=== PATIENT | male | born 1945 | race Caucasian/White ===

== ENCOUNTER 2018-03-25 21:54 | Observation (INO) ==
[2018-03-25] MEDS ORDERED: Sodium Chloride 0.9% 1,000 ML PRIMARY IV ONE (22:11)
--- NOTE | 2018-03-25 22:16 | EKG ---
[address] [address] Measurements Intervals [place] Rate: 80 P: 146 WV: 228 QRS: -7 QRSD: 106 T: 40 QT: 410 QTc: 445 Interpretive Statements ELECTRONIC ATRIAL PACEMAKER ABNORMAL RHYTHM ECG Compared to ECG 06/04/2016 14:19:07 T-wave abnormality no longer present Electronically Signed On 03-28-18 09:50:50 MDT by Ravindra Gomez MD [email or web address]
[2018-03-25 22:19] LABS: BASOPHILS # (AUTO) 0.02 10*3/UL; BASOPHILS % (AUTO) 0.3 % (0-1); EOSINOPHILS # (AUTO) 0.08 10*3/UL; EOSINOPHILS % (AUTO) 1.2 % (0-8); Hematocrit [HCT] 45.4 % (42.0-52.0); Hemoglobin [HGB] 15.4 g/dL (14.0-18.0); LYMPHOCYTES # (AUTO) 1.35 10*3/uL; MEAN CORPUSCULAR HEMOGLOBIN 32.6 PG (27-31); MEAN CORPUSCULAR HGB CONC 33.9 g/dL (33-37); MEAN PLATELET VOLUME 9.3 FL (7.4-12.2); MONOCYTES # (AUTO) 0.59 10*3/UL (0.3-0.8); MONOCYTES % (AUTO) 9.1 % (5-15); NEUTROPHILS % (AUTO) 68.2 % (50-80); RED BLOOD COUNT 4.73 10^6/uL (4.70-6.10)
[2018-03-25 22:20] LABS: PLATELET MORPHOLOGY COMMENT NORMAL MORPHOLOGY (NORM); RBC MORPHOLOGY COMMENT NORMAL MORPHOLOGY (NORM); WBC MORPHOLOGY COMMENT NORMAL MORPHOLOGY (NORM)
[2018-03-25 22:28] LABS: VENOUS PH 7.41 (7.32-7.42)
[2018-03-25 22:30] LABS: BLOOD UREA NITROGEN 25 mg/dL (7-22); BUN/CREATININE RATIO 19.23 (6-20); SERUM ALBUMIN 4.1 g/dL (3.5-4.8)
--- NOTE | 2018-03-25 23:23 | DI ---
EXAM: CT Head Without Intravenous Contrast CLINICAL HISTORY: ITS.REASON syncope/seizure Physician Notes: Tech Comments: TECHNIQUE: Axial computed tomography images of the head/brain without intravenous contrast. COMPARISON: No relevant prior studies available. FINDINGS: Brain: No evidence for acute intracranial hemorrhage or mass effect. No visualized acute cortical edema or evidence for territorial infarct by CT at this time. There are mild periventricular and subcortical white matter hypodensities bilaterally which are nonspecific, typically related to chronic small vessel ischemia. Mild hypodensity within the right basal ganglia could represent an old lacunar infarct or prominent perivascular space, with small similar foci also noted within the left thalamus and internal capsule. Global cortical involutional changes are present. Ventricles: Unremarkable. No ventriculomegaly. Bones/joints: Unremarkable. No acute fracture. Soft tissues: Unremarkable. Sinuses: Chronic paranasal sinus mucosal thickening is present. Mastoid air cells: Unremarkable as visualized. No mastoid effusion. IMPRESSION: 1. No acute intracranial CT findings. 2. Chronic intracranial changes as above. [employer] 03/25/18 23:29 Call Doctor Regarding Stroke, called Dr. Prashant Farias on 03/25 23:29 (-06:00)
--- NOTE | 2018-03-25 23:56 | PDOC ---
Syncope/Near-Syncope HPI - General Chief Complaint: Syncope / Near-Syncope Stated Complaint: PASSED OUT Date Seen by Provider: 03/25/18 Time Seen by Provider: 22:00 Source: POSITIVE: Patient, Spouse, EMS Exam Limitations: POSITIVE: No limitations Nurse's Notes Reviewed & Considered: Yes EMS Report Reviewed & Considered: Verbal - History of Present Illness Initial Comments: The patient is a 72-year-old male who is brought to the emergency room by paramedics from his home in [facility]. Patient was eating dinner with his when the patient had a abrupt loss of consciousness. states that " his eyes rolled up and his jaw clenched and he stopped breathing". Patient laid back into his chair and did not fall. No obvious choking. called paramedics. No bystander CPR. Patient resumed spontaneous respirations shortly after. Time of loss of consciousness less than 2 minutes. Paramedics report that patient was alert and oriented upon their arrival to the patient's residence. In route the patient had one episode of emesis. Patient has a cardiac pacemaker and a history of atrial fibrillation. He is on Eliquis, 5 mg twice daily. He is also on diltiazem, losartan, flecainide, atorvastatin, Nexium, citalopram. Patient denies any head, chest or abdominal pain before or after incident. Reportedly had a "stroke "2 years ago. Body Location Affected: REPORTS: Other (Loss of consciousness) Timing: REPORTS: Abrupt Duration: Other (Less than 2 minutes) Severity: Moderate Quality: REPORTS: Other (Patient denies any pain anywhere) Episode Began at:: 20:00 Witnessed? 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) Associated Symptoms: REPORTS: None (feels back to nml) Recently seen/treated/hospitalized: No Any Prior Injuries Related to Current Complaint?: No - Patient Home Medications Home Medications: Home Medications Multivitamin [Daily Vitamin] 1 tab ORAL QD tab 06/18/11 Zyrtec 1 tab PO QD 06/18/11 Gluc/Yves-MSM#1/C/Yuval/Greg/Bor [Osteo Bi-Flex Caplet] 1 ea PO DAILY tab Esomeprazole Magnesium [Nexium] 40 mg PO DAILY #0 cap 07/03/15 Temazepam 30 mg PO QHS PRN #90 cap 09/02/15 Apixaban [Eliquis] 5 mg PO BID #60 tab 03/17/16 Diltiazem HCl [Cartia Xt] 240 mg PO DAILY cap 07/09/16 flecainide 100 mg tablet 150 mg PO Q12H tab 08/12/17 losartan 50 mg tablet 50 mg PO QD #30 tab 08/12/17 tizanidine 4 mg capsule 4 mg PO TID PRN #180 cap 08/12/17 tramadol 50 mg tablet 50 mg PO QID PRN #120 tab 08/12/17 trazodone 50 mg tablet 50 mg PO QHS PRN #90 tab 08/12/17 citalopram 20 mg tablet 20 mg PO DAILY #90 tab 08/30/17 atorvastatin 20 mg tablet 20 mg PO DAILY #90 tab 10/13/17 fluticasone 50 mcg/actuation nasal spray,suspension 2 spray INASL DAILY #16 g tadalafil 5 mg tablet 5 mg PO QDAY #90 tab 10/13/17 testosterone cypionate 200 mg/mL intramuscular oil 200 mg IM every 2 weeks #6 vial 10/13/17 - Patient Allergies Allergies/Adverse Reactions: Allergies 3 Allergy/AdvReac Type Severity Reaction Status Date / Time ezetimibe Allergy BLURRED Verified 08/12/17 11:20 [From Vytorin 10-10] VISION VERTIGO NSAIDS (Non-Steroidal Allergy GI BLEED Verified 08/12/17 11:20 Anti-Inflamma simvastatin Allergy BLURRED Verified 08/12/17 11:20 [From Vytorin 10-10] VISION VERTIGO Past Medical History - heen HEENT History: Hard of Hearing, Tinnitis, Chipped or Loose Teeth Cardiovascular History: Hypertension, Pacemaker, Hyperlipidemia, Other (please comment) Additional Cardiovasular History: A-FIB, PACEMAKER 05/30/2016 Respiratory History: Sleep Apnea, Home CPAP Use, Snoring Gastrointestinal History: GERD, GI Bleed, Hiatal Hernia Additional Gastrointestinal History: BARRETTS Genitourinary History: Denies History Endocrine History: Denies History Musculoskeletal History: Arthritis, Fibromyalgia, Back Pain, Joint Pain Prosthesis or Implant: Yes (PACEMAKER-2015) Additional Musculoskeletal History: 2010 L-SPINE, NECK- 5 LEVEL FUSION 2005, SHOULDER-2006,2008,2012 Neurological History: CVA Additional Neurological History: CVA 01/20/2016 Blood Disorders: Previous Bld Transfusions Psychiatric History: Depression History of Sexually Transmitted Diseases: No Male Reproductive History: BPH Cancer History: Denies History In Past Year Been Physically Harmed or Verbally Threatened: No History of MDRO: No History of Other Communicable Diseases: No Tobacco Use: Never Smoker Type of alcohol normally used: Beer, Wine In the Past 12 Months, Have Used or Abuse Any Substance: None Previous Surgical History: Yes Type / Date of Surgery: PACE MAKER 2015, NECK FUSION 2005, BACK SURGERY 2009, SHOULDER 2006,2008, 2012 Anesthesia Reactions: No Malignant Hyperthermia: No Family History of Malignant Hyperthermia: No Significant Family History: Cancer Past Medical History Reviewed: Reviewed - No Changes ROS - Limitations ROS Limitations: No Limitations Constitution: REPORTS: Denies Symptoms, Other (Syncope as above) Cardiovascular: REPORTS: Denies Cardiac Symptoms Respiratory: REPORTS: Denies Resp Symptoms Neurological: REPORTS: Other (Syncope as above) Gastrointestinal: REPORTS: Vomitting (One episode of vomiting reported by paramedics in route to the hospital) Endocrine: REPORTS: Denies Symptoms Musculoskeletal: REPORTS: Denies MS Symptoms Genitourinary: REPORTS: Denies Symptoms Eyes: REPORTS: Denies Symptoms ENT: REPORTS: Denies Symptoms Skin: REPORTS: Denies Skin Symptoms Lympathic: REPORTS: Denies Lympathic Symptoms Immunologic: POSITIVE: Denies Symptoms Psychiatric: POSITIVE: Denies Psych Symptoms Syncope / Near-Syncope Exam - General Appearance General Appearance: POSITIVE: Alert, Cooperative, No Acute Distress, No Evidence of Trauma - HEENT HEENT: POSITIVE: Head Inspection Nml, Eyes Inspection Nml, Ears Inspection Nml, Nose Inspection Nml, Oral/Dental Inspect. Nml, Pharynx Inspect. Nml, PERRL, EOMI - Pupil Size Pupil Size: 3 mm: Bilateral (PERRLA) - Neck / Back Neck/Back: POSITIVE: Supple, Non-Tender, No Carotid Bruit - Respiratory Respiratory: POSITIVE: No Respiratoy Distress, Breath Sounds Normal, No Pleuritic Chest Pain - Cardiovascular Cardiovascular: POSITIVE: Regular Rate and Rhythm, Heart Sounds Normal, Equal Pulses, Strong Pulses Peripheral Pulses: Radial (R): 2+, Radial (L): 2+ - Abdomen Abdomen: Soft: (All Quadrants), Normal Bowel Sounds: (All Quadrants), Denies Tenderness: (All Quadrants), No Splenomegaly: (All Quadrants), No Hepatomegaly: (All Quadrants), No Guarding: (All Quadrants), No Rebound: (All Quadrants), No Palpable Pulse: (All Quadrants), No Palpabale Mass: (All Quadrants), No Distention: (All Quadrants), No Rigidity: (All Quadrants) - Skin Skin: POSITIVE: Intact, Normal For Race, Warm, Dry, No Rash - Extremities Extremity: Non-Tender: (All Extremities), Normal ROM: (All Extremities), Normal Inspection: (All Extremities) - Neuro / Psych Higher Functions: POSITIVE: Oriented to Person, Oriented to Place, Oriented to Time, Normal Speech, Normal Cognition, Appropriate Mood, Appropriate Affect. NEGATIVE: Disoriented to Person, Disoriented to Place, Disoriented to Time, Speech Abnormalities, Cognition Abnormalities, Depressed Mood, Depressed Affect , Abnml Response to Command, No Response to Command, Eyes Open to Command, Slow Response to Command, Inapp Response to Command, Expressive Aphasia, Receptive Aphasia, Abnml Response to Pain, Withdraws to Pain, Flexor to Pain, Extensor to Pain, No Response to Pain, Dysarthria, Other Cranial Nerves: POSITIVE: Normal As Tested, No Evidence of Acute CVA Cerebellar: POSITIVE: Normal As Tested Sensorimotor: POSITIVE: No Motor Deficits, No Sensory Deficits, Reflexes Normal , Symmetrical Syncope/Near-Syncope Progress - Results Reviewed by me Xrays/CTs/US Reviewed by me: Yes Discussed with Radiologist: Yes Radiology Findings: CT scan head without contrast reported as normal by radiologist Lab Results Reviewed by Me: Yes (venous blood gas normal; troponin less than 0.012; total creatine kinase to) CBC and BMP: 03/25/18 22:12 03/25/18 22:12 EKG Interpreted/Reviewed By Me:: Yes (pacemaker rhythm) EKG Interpretation:: POSITIVE: Abnormal EKG (Pacemaker rhythm) - Patient's Progress Pain Medication Addressed: POSITIVE: Not Applicable School/Work Release Addressed: POSITIVE: Not Applicable Re-examine Time: 23:45 Re-Examine Comment: Patient remained asymptomatic throughout his stay in the emergency room. Rested comfortably. Status: POSITIVE: Unchanged CVA/Syncope Quality Measure Initiative: POSITIVE: EKG - Consult Counseled: POSITIVE: Patient, Family, RE: Lab Results, RE: Radiology Results, RE : DX, RE: Need for F/U Patient Care Time - Estimated PCT Patient Care Time (In Minutes): 60 Vital Signs - Recent Vital Signs Vital Signs: Vital Signs (Last 8 hours) Temp Pulse Pulse Resp BP Pulse Ox 03/25/18 23:14 80 03/25/18 22:00 96.0 F L 81 18 117/72 90 03/25/18 21:54 96.0 F L 81 18 117/72 93 - VS Reviewed Vital Signs Reviewed: Yes Discharge Clinical Impression: Syncope Discharge Disposition: Admit to Inpatient Condition: Fair Follow Up With: BRANDI OVERTON [Primary Care Provider] - Date Decision to Admit to Inpatient: 03/25/18 Time Decision to Admit to Inpatient: 23:45
[2018-03-26] MEDS ORDERED: LIDOCAINE W/ SODIUM BICARB 0.5 ML SYR SUBD PRN (01:01)
[2018-03-26] MEDS ORDERED: Sodium Chloride 0.9% 1,000 ML PRIMARY IV ONE (01:01)
[2018-03-26] MEDS ORDERED: Non-Formulary Drug (Temazepam [Temazepam] 30 MG) PO PRN (01:01)
[2018-03-26] MEDS ORDERED: FLECAINIDE 100 MG TABLET PO SCH (01:01)
[2018-03-26] MEDS ORDERED: tiZANidine Tab 4 MG TAB PO PRN (01:01)
[2018-03-26] MEDS ORDERED: traZODone Tab 50 MG TAB PO PRN (01:01)
[2018-03-26] MEDS ORDERED: traMADol 50 MG TABLET PO PRN (01:01)
[2018-03-26] MEDS: Sodium Chloride 0.9% 1,000 ML PRIMARY IV SCH ×2 (01:35→14:41)
[2018-03-26 03:24] LABS: AMPHETAMINE SCREEN NEGATIVE (NEG); CANNABINOID SCREEN,URINE NEGATIVE (NEG); COCAINE SCREEN NEGATIVE (NEG); METHADONE URINE SCREEN NEGATIVE (NEG); METHAMPHETAMINES SCREEN,URINE NEGATIVE (NEG); OPIATE SCREEN,URINE NEGATIVE (NEG); URINE SAMPLE TYPE CLEAN CATCH URINE; URINE SPECIFIC GRAVITY - MAN 1.007
[2018-03-26] MEDS ORDERED: Apixaban 5 MG TABLET PO SCH (09:00)
[2018-03-26] MEDS ORDERED: DILTIAZEM CD 240 MG CAP PO SCH (09:00)
[2018-03-26] MEDS ORDERED: CITALOPRAM 20 MG TABLET PO SCH (09:00)
[2018-03-26] MEDS ORDERED: [UNRECOGNIZED DRUG - OTHER] PO SCH (09:00)
[2018-03-26] MEDS ORDERED: LOSARTAN 50 MG TABLET PO SCH (09:00)
[2018-03-26] MEDS ORDERED: OMEPRAZOLE 40 MG CAPSULE PO SCH (09:00)
--- NOTE | 2018-03-26 09:46 | PDOC ---
HPI - History of Present Illness Date of Service: 03/26/18 Time of Service: 09:39 Chief Complaint: passed out and stopped breathing. History of Present Illness: This is a very pleasant 72 YO male with atrial fibrillation and history of CVA with pacemaker, HTN, hypercholesterolemia, amongst other issues who comes in by ambulance from [place] after he was at his table with his family and his neck rolled back, he became pale, unresponsive, and stopped breathing per the 's history. His teeth were reportedly clenched per the emergency room physician's report. The patient remained in his chair throughout the episode and did not slump or fall to the floor. He was in his chair when EMS arrived according to the patient's . The patient has no recall of this event. He denies any shortness of breath or chest pain prior to the event or any prodrome of symptoms prior to this episode. No convulsions were described. The patient' s drove down the hill, and called 911. The patient's daughter was present at the patient's cabin with him during this episode. The episode lasted about 2 minutes. He lost his urine, but no fecal incontinence. He did not bite his tongue. He is never had anything like this happen before. His pacemaker is interrogated fairly regularly through the phone and there had been no issues with pacemaker in the 3 years that it is been present. He was hypoxic this morning as well and is on 3 L per nasal cannula. His EKG showed a paced rhythm. His troponins were negative. In route in the ambulance, the patient became pale and vomited, but he does not recall much of the ride. He states he remembers bits and pieces of the ride down. He notes to me that he is tired but not overly confused. There've never been any seizures before. He notes importantly that he normally cannot move his neck very well because of his 5 level effusion. It's hard for him to rotate his head from side to side or extend the neck. This was something that surprised the family and that his neck extended during this episode. It did not extend prior to the episode happening. Past Medical History Medical History: 1. Atrial fibrillation with a history of a stroke. He had a pacemaker placed in 2016. 2. Status post CVA in 2016. 3. Hypertension. 4. Hypercholesterolemia. 5. Arthritis with back and neck surgery. 6. GERD Surgical History: 5 level fusion in the cervical spine, lumbar surgery, umbilical hernia repair, remote, colonoscopy Pertinent Family History: Mother of colon cancer with metastasis to the brain Past Social History: Does not smoke. Drinks only occasionally. 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 Tobacco Use: Never Smoker Do you dip or chew tobacco: No In the Past 12 Months, Have Used or Abuse Any of the Following Substance: None Alcohol Use: Occasionally Medication / Allergies Home Medications: Home Medications 3 Medication Instructions Recorded Confirmed Type Multivitamin [Daily Vitamin] 1 tab ORAL QD tab 06/18/11 03/26/18 History Zyrtec 1 tab PO QD 06/18/11 03/26/18 History Gluc/Yves-MSM#1/C/Yuval/Greg/Bor 1 ea PO DAILY tab 07/04/13 08/12/17 History [Osteo Bi-Flex Caplet] Esomeprazole Magnesium [Nexium] 40 mg PO DAILY #0 cap 07/03/15 03/26/18 History Temazepam 30 mg PO QHS PRN #90 cap 09/02/15 03/26/18 History Apixaban [Eliquis] 5 mg PO BID #60 tab 03/17/16 03/26/18 History Diltiazem HCl [Cartia Xt] 240 mg PO DAILY cap 07/09/16 03/26/18 History flecainide 100 mg tablet 100 mg PO DAILY tab 08/12/17 03/26/18 History losartan 50 mg tablet 50 mg PO QD #30 tab 08/12/17 03/26/18 History tizanidine 4 mg capsule 4 mg PO TID PRN #180 cap 08/12/17 03/26/18 History tramadol 50 mg tablet 50 mg PO QID PRN #120 tab 08/12/17 03/26/18 History trazodone 50 mg tablet 50 mg PO QHS PRN #90 tab 08/12/17 03/26/18 History citalopram 20 mg tablet 20 mg PO DAILY #90 tab 08/30/17 03/26/18 Rx atorvastatin 20 mg tablet 20 mg PO DAILY #90 tab 10/13/17 03/26/18 Rx fluticasone 50 mcg/actuation nasal 2 spray INASL DAILY #16 g 10/13/17 03/26/18 Rx spray,suspension testosterone cypionate 200 mg/mL 200 mg IM every 2 weeks #6 vial 10/13/17 Rx intramuscular oil Flecainide Acetate 50 mg PO DAILY 03/26/18 03/26/18 History Allergies/Adverse Reactions: Allergies 3 Allergy/AdvReac Type Severity Reaction Status Date / Time ezetimibe Allergy BLURRED Verified 03/26/18 06:46 [From Vytorin 10-10] VISION VERTIGO NSAIDS (Non-Steroidal Allergy GI BLEED Verified 03/26/18 06:46 Anti-Inflamma simvastatin Allergy BLURRED Verified 03/26/18 06:46 [From Vytorin 10-10] VISION VERTIGO Review of Systems - Review of Systems All Systems: Reviewed & No Additional Complaints Except as Stated (This was a 12 point review of systems) - Cardiovascular Cardiovascular: REPORTS: Syncope - Gastrointestinal Gastrointestinal / Abdominal: REPORTS: Nausea, Vomiting - Musculoskeletal Musculoskeletal: REPORTS: Back Pain, Neck Pain, Joint Pain - Shoulders - Neurological Neurologic: REPORTS: Headache (Has had a headache the past 2 days and that is not normal for the patient.) Exam - Vitals Vital Signs: Vital Signs Temperature 97.7 F Temperature Source Temporal Artery Scan Pulse Rate [Pulse Oximeter] 80 Pulse Rate [Standing] 85 Pulse Rate [Sitting] 80 Pulse Rate [Lying] 81 Pulse Rate 80 Respiratory Rate 20 Blood Pressure [Standing] 126/74 Blood Pressure [Sitting] 123/70 Blood Pressure [Lying] 121/68 Blood Pressure [Right Arm] 128/68 Blood Pressure [Left Arm] 117/72 Blood Pressure 115/74 Pulse Ox 95 Oxygen Flow Rate 3 Oxygen Delivery Method Nasal Cannula Height 5 ft 8 in Weight 198 lb 5 oz - General General Appearance: No Acute Distress, Cooperative - Head Head Exam: Normal Inspection, Normocephalic, Atraumatic - Eye Eye Exam: POSITIVE: No Scleral Icterus - ENT ENT Exam: POSITIVE: Mucous Membranes Moist - Neck Neck Exam: Normal Inspection, No Tenderness, No Lymphadenopathy, No Thyromegaly - Respiratory Respiratory Exam: POSITIVE: Clear to Auscultation - Bilaterally, Breathing Non Labored, Normal to Percussion and Palpation - Cardiovascular Cardiovascular Exam: POSITIVE: RRR, No Murmur, No Clicks, No Gallops, No Rubs, No JVD - GI/Abdominal GI/Abdominal Exam: POSITIVE: Normal Bowel Sounds, Non Tender, Non Distended, Soft - Rectal Rectal Exam: POSITIVE: Deferred - External Exam: POSITIVE: Deferred Exam: POSITIVE: Deferred - Extremities Extremities Exam: POSITIVE: No Clubbing Present, No Edema Present, No Cyanosis Present - Back Back Exam: POSITIVE: No CVA Tenderness - Neurological Neurological Exam: POSITIVE: Alert, Oriented x 3, No Facial Droop, Speech Intact / Clear, Moves All Extremities Equally - Psychiatric Psychiatric Exam: POSITIVE: Normal Affect, Normal Mood - Integumentary Integumentary Exam: POSITIVE: Normal Color, Warm, Dry, Intact Results - Labs CBC and BMP: 03/25/18 22:12 03/25/18 22:12 AFib Stroke Risk Screening - AFib Stroke Risk (CHADS-VASc) Atrial Fibrillation Ischemic Stroke Risk Factors: Age 65 to 74 years, Stroke, TIA or TE (The patient is already on novel oral anticoagulant) CHADS-VASc Score (A-Fib Stroke Risk Score): 3 CHADS-VASc Risk: High Risk Assessment and Plan - Patient Problems (1) Syncope Current Visit: Yes Status: Acute Code(s): R55 - Syncope and collapse (2) Pacemaker Current Visit: Yes Status: Chronic Onset Date: 07/09/16 Code(s): Z95.0 - Presence of cardiac pacemaker (3) Hyperlipidemia Current Visit: Yes Status: Chronic Onset Date: 06/18/11 Code(s): E78.5 - Hyperlipidemia, unspecified Qualifiers: Hyperlipidemia type: pure hypercholesterolemia Qualified Code(s): E78.00 - Pure hypercholesterolemia, unspecified; E78.0 - Pure hypercholesterolemia (4) Essential hypertension Current Visit: Yes Status: Chronic Onset Date: 06/18/11 Code(s): I10 - Essential (primary) hypertension - Assessment / Plan Additional Assessment/Plan Details: Patient is admitted for observation. Given hypoxia, despite novel oral anticoagulant, I think it's reasonable to do a CT of the chest with contrast to rule out pulmonary emboli. We can also look for any potential infections such as pneumonia. Overall, the patient's story sounds somewhat suspicious for possible seizure at least it's in the differential. I'll talk to the neurologist. I think it may be worth having the patient visit them as an outpatient for further evaluation of possible EEG. The patient's will bring in their interrogation machine and we will have the patient put up and we will send the report, and hopefully contact her funding analyst in [place] for further help in evaluation of this issue. I doubt that the pacemaker is the issue but I think it needs to be done for completeness. Orthostatics were done and they are negative. Could be possible vasovagal syncope as well. Continue home medications. Thus far, troponins are negative, but given the syncopal episode and may be worthwhile to go through a stress test to make sure there is no coronary artery disease. I'll talk with his funding analyst here to find out whether the pacemaker presence would exclude him from having that test done here in [place]. Discussed the above plan with the patient and his and they agreed to proceed.
[2018-03-26] MEDS: ESOMEPRAZOLE 40 MG PO SCH ×2 (09:53→20:27)
[2018-03-26] MEDS: FLECAINIDE 100 MG PO SCH ×2 (09:54→20:26)
[2018-03-26] MEDS: DILTIAZEM CD 240 MG PO SCH (09:54)
[2018-03-26] MEDS: APIXABAN 5 MG PO SCH ×2 (09:54→20:27)
[2018-03-26] MEDS: FLUTICASONE PROPIONATE 16 GRAM (120 SPRAYS / BOTTLE) ENOS SCH (09:58)
[2018-03-26] MEDS: Multivitamin Tab 1 TAB PO SCH (10:01)
[2018-03-26] MEDS ORDERED: LevETIRAcetam Tab 500 MG TABLET PO ONE (11:36)
--- NOTE | 2018-03-26 12:08 | DI ---
Exam: CTA CHEST With Contrast INDICATION: Hypoxia,? Pulmonary embolism TECHNIQUE: Multiple, contiguous 3 mm axial cuts of the chest are obtained following the administration of IV contrast. High resolution axial images as well as sagittal and coronal reformatted images are available. COMPARISON: Chest radiograph 07/08/2007 FINDINGS: No pulmonary embolism. Minimal dependent atelectasis in the lung bases bilaterally. No acute infiltrate. In the left lower lobe there is a 4 mm subpleural noncalcified nodule. Lungs are otherwise clear. Left upper chest dual-lead cardiac with leads with cardiomegaly. With leads projecting in the right atrium and right ventricle. Cardiomegaly. No pericardial effusion. Thoracic aorta normal caliber without dissection. No pleural effusion or pneumothorax. No adenopathy. Calcified left hilar lymph node measuring 1.6 cm compatible with old granulomatous disease. Anterior plate screw fusion hardware partially imaged involving C6 and C7 possibly extending more superiorly in the cervical spine. Endplate degenerative osteophyte formation at multiple levels of the thoracic spine of mild to moderate degree. No acute osseous abnormality. IMPRESSION: 1. No pulmonary embolism. 2. No focal infiltrates in the lungs. Minimal dependent bilateral basilar atelectasis. 3. 4 mm noncalcified subpleural nodule left lower lobe. This is nonspecific. Follow-up exam in 6 months suggested. 4. Cardiac pacer with leads with cardiomegaly. 5. Calcified left hilar lymph nodes compatible with old granulomatous disease.
--- NOTE | 2018-03-26 16:28 | DI ---
Exam: US CAROTID HISTORY: Syncope COMPARISON: No prior carotid exam available TECHNIQUE: Duplex sonography of the carotid vasculature and vertebral vasculature including spectral and color Doppler techniques and rodriguez scale evaluation provided for review. FINDINGS: VESSEL: RIGHT PSV (cm/s) LEFT PSV (cm/s) CCA 107 cm/s 100 cm/s Carotid bulb 72 cm/s 109 cm/s ICA proximal 59 cm/s 108 cm/s ICA mid 55 cm/s 55 cm/s ICA distal 45 cm/s 57 cm/s ECA 112 cm/s 128 cm/s Vertebral 35 cm/s 61 cm/s IC to CC 0.6 cm/s 1.1 cm/s Antegrade flow in the vertebral arteries are noted bilaterally. There is mild calcified plaque in the bilateral carotid bulbs IMPRESSION: 1. No hemodynamically significant stenotic lesions. 2. Antegrade flow in the vertebral arteries bilaterally. 3. Mild calcified plaque in the bilateral carotid bulbs.
[2018-03-26] MEDS: LevETIRAcetam Tab 500 MG TABLET PO SCH (20:26)
[2018-03-26] MEDS: ATORVASTATIN 20 MG PO SCH (20:29)
[2018-03-26] MEDS: CITALOPRAM 20 MG PO SCH (20:29)
[2018-03-26] MEDS: LOSARTAN 50 MG PO SCH (20:30)
[2018-03-26] MEDS ORDERED: ATORVASTATIN 20 MG TABLET PO SCH (21:00)
[2018-03-27] MEDS ORDERED: FLECAINIDE 100 MG TABLET PO SCH (09:00)
[2018-03-27] MEDS: Multivitamin Tab 1 TAB PO SCH (09:10)
[2018-03-27] MEDS: LevETIRAcetam Tab 500 MG TABLET PO SCH ×2 (09:10→20:09)
[2018-03-27] MEDS: FLECAINIDE 100 MG PO SCH ×2 (09:11→20:17)
[2018-03-27] MEDS: DILTIAZEM CD 240 MG PO SCH (09:12)
[2018-03-27] MEDS: ESOMEPRAZOLE 40 MG PO SCH ×2 (09:12→20:12)
[2018-03-27] MEDS: APIXABAN 5 MG PO SCH ×2 (09:13→20:12)
[2018-03-27] MEDS: FLUTICASONE PROPIONATE 16 GRAM (120 SPRAYS / BOTTLE) ENOS SCH (10:39)
--- NOTE | 2018-03-27 12:40 | PDOC(PROG) ---
Date and Time of Service: 03/27/2018, 1235 Interval History: The patient recalls some more details about the day leading up to his possible seizure. He states that the morning of his event, he had a headache, took some Tylenol. He also was having increased back pain so he took one of his pain medications and a muscle relaxant. He is on tramadol and tizanidine. He had a small amount of red wine with dinner. I spoke with the patient's audit spec, and they suggested that we have the device tax compliance representative interrogate the pacemaker as they will not be able to access the patient's interrogation into the clinic is open. I put in a call to the [employer] rep who will be here tomorrow morning to do an interrogation to look for atrial fibrillation or arrhythmias that may have occurred. Today, the patient does not complain of any chest pain, shortness breath, nausea or vomiting. He denied any further seizure activity or loss of consciousness. Objective : Data - Labs CBC and BMP: 03/25/18 22:12 03/25/18 22:12 Additional Lab Results: Troponins were negative Objective : Exam - General General Appearance: No Acute Distress, Cooperative Additional General Exam Details: Vital Signs - Last Taken Temperature 97.7 F 03/27/18 11:25 Pulse Rate 80 03/27/18 11:25 Respiratory Rate 18 03/27/18 11:25 Blood Pressure 123/72 03/27/18 11:25 Pulse Ox 96 03/27/18 11:25 - Eye Eye Exam: No Scleral Icterus - ENT ENT Exam: Mucous Membranes Moist - Respiratory Respiratory Exam: Clear to Auscultation - Bilaterally, Breathing Non Labored - Cardiovascular Cardiovascular Exam: RRR, No Murmur, No Clicks, No Gallops, No Rubs, No JVD - GI/Abdominal GI/Abdominal Exam: Normal Bowel Sounds, Non Tender, Non Distended, Soft - Extremities Extremities Exam: No Clubbing Present, No Edema Present, No Cyanosis Present - Neurological Neurological Exam: Alert, Oriented x 3, No Facial Droop, Speech Intact / Clear, Moves All Extremities Equally Assessment and Plan - Patient Problems (1) Syncope Current Visit: Yes Status: Acute Comment: Most likely a seizure. Code(s): R55 - Syncope and collapse (2) Pacemaker Current Visit: Yes Status: Chronic Onset Date: 07/09/16 Code(s): Z95.0 - Presence of cardiac pacemaker (3) Hyperlipidemia Current Visit: Yes Status: Chronic Onset Date: 06/18/11 Code(s): E78.5 - Hyperlipidemia, unspecified Qualifiers: Hyperlipidemia type: pure hypercholesterolemia Qualified Code(s): E78.00 - Pure hypercholesterolemia, unspecified; E78.0 - Pure hypercholesterolemia (4) Essential hypertension Current Visit: Yes Status: Chronic Onset Date: 06/18/11 Code(s): I10 - Essential (primary) hypertension (5) Chronic neck and back pain Current Visit: Yes Status: Acute Code(s): M54.2 - Cervicalgia; M54.9 - Dorsalgia, unspecified - Assessment / Plan Additional Assessment/Plan Details: I spoke with neurology in [place], we will have the patient try to arrange a follow-up appointment this next week with Dr. Priest or one of his associates. It was suggested that we should put the patient on Keppra, 500 mg twice a day for one week and then increase to thousand milligrams twice a day. Patient's on several medications which could lower the seizure threshold, so I will stop at this point, the following medicines: Trazodone, tizanidine, tramadol I think we can use Robaxin as a muscle relaxant. We could try hydrocodone for pain relief if necessary as the patient has an anti-inflammatory allergy. Interrogate the pacemaker tomorrow. I think it will make some sense to have the patient follow with cardiology as well. We'll try to arrange something tomorrow with Dr. Eckert, his audit spec in [place], as it may be worthwhile to consider stress test as well. Ultimately the event sounds very suspicious for seizure however. discussed with patient. I will update the patient's son Reassuring the carotid Doppler study was negative. Had some carotid bulb plaques, but no significant stenosis.
[2018-03-27] MEDS: CITALOPRAM 20 MG PO SCH (20:12)
[2018-03-27] MEDS: LOSARTAN 50 MG PO SCH (20:12)
[2018-03-27] MEDS: ATORVASTATIN 20 MG PO SCH (20:12)
[2018-03-28 07:07] VITALS: RESP 18
[2018-03-28] MEDS: LevETIRAcetam Tab 500 MG TABLET PO SCH (08:43)
[2018-03-28] MEDS: FLUTICASONE PROPIONATE 16 GRAM (120 SPRAYS / BOTTLE) ENOS SCH (08:43)
[2018-03-28] MEDS: FLECAINIDE 100 MG PO SCH (08:46)
[2018-03-28] MEDS: APIXABAN 5 MG PO SCH (08:48)
[2018-03-28] MEDS: ESOMEPRAZOLE 40 MG PO SCH (08:48)
[2018-03-28] MEDS: DILTIAZEM CD 240 MG PO SCH (08:49)
[2018-03-28] MEDS: Multivitamin Tab 1 TAB PO SCH (08:51)
[2018-03-28 11:08] VITALS: BP 111/59; TEMP 97.3; O2SAT 93
--- NOTE | 2018-03-28 11:45 | DCSUMMARY ---
Hospitalization Summary Admit Date: 03/25/2018 Discharge Date: 03/28/18 Primary Diagnosis:: seizure, resolved Hospital Course: This very pleasant 72-year-old male who came in with a loss of consciousness episode that was thought to be related to syncope. He was in his chair, when he suddenly had neck extension, eyes rolling back, clenched teeth, it happened very suddenly with no prodromal symptoms. He had urinary incontinence. He truly had retrograde and antegrade amnesia with this event as well but convulsions were not prescribed. The next day, the patient was able to tell me that he took a pain pill and a muscle relaxant during the day and had a partial glass of wine at dinner. He did not know if these medications could've caused this but his pain pills were tramadol and his muscle relaxant is tizanidine. Orthostatics on admission were negative. He was tired and fatigued on the initial day of admission after the loss of consciousness. All of this looked very consistent with a seizure. A prolactin level has also been drawn and is pending. The patient was hypoxic upon arrival to the emergency room and a CT scan study was done to look for pulmonary emboli which was negative. He does have obstructive sleep apnea. Hypoxia resolved We interrogated the pacemaker, and there were no arrhythmias at the time of his event. CT scan showed old evidence of a basal ganglia stroke. Patient had a known stroke in 2016. I discussed this all with the neurologist and they felt that it was also consistent with a seizure as I did as well, and they recommended Keppra 500 mg twice a day for a week and then 1000 mg twice a day for a week. They have already called the patient to try and arrange an appointment time for follow-up and possible EEG and any other studies neurology thinks would be necessary. In that effort, we pushed our imaging studies up to Jorge. I warned the patient about potential side effects of Keppra, including the possibility of Batista-Андрей syndrome and told him to discontinue if he develops any rash. Thus far in the hospital, the patient tolerated Keppra very well these had 3 total doses without any issues. We stopped his tramadol, temazepam, and trazodone at the time of discharge. He did not have any further loss of consciousness episodes or seizures during the hospital stay. Today, he feels a little tired, but no chest pain, shortness breath, nausea or vomiting and he is ready to go home. We also prescribed Ativan in liquid form in case the patient has any seizures so that hopefully can be administered if he has any further events. Assessment and Plan: 1. As per discharge assessments noted 2. Disposition: Patient is discharged home. 3. Condition on discharge, stable and improved. 4. Diet: regular diet 5. Activities: resume normal activities 6. Follow-Up: 1. Dr. Hirsch in one week 2. Dr. Priest in [place] within the next 6 weeks 7. Medications at the Time of Discharge: Home Medications 3 Medication Instructions Recorded Confirmed Type Multivitamin [Daily Vitamin] 1 tab ORAL QD tab 06/18/11 03/26/18 History Zyrtec 1 tab PO QD 06/18/11 03/26/18 History Gluc/Yves-MSM#1/C/Yuval/Greg/Bor 1 ea PO DAILY tab 07/04/13 08/12/17 History [Osteo Bi-Flex Caplet] Esomeprazole Magnesium [Nexium] 40 mg PO DAILY #0 cap 07/03/15 03/26/18 History Temazepam 30 mg PO QHS PRN #90 cap 09/02/15 03/26/18 History Apixaban [Eliquis] 5 mg PO BID #60 tab 03/17/16 03/26/18 History Diltiazem HCl [Cartia Xt] 240 mg PO DAILY cap 07/09/16 03/26/18 History losartan 50 mg tablet 50 mg PO QD #30 tab 08/12/17 03/26/18 History citalopram 20 mg tablet 20 mg PO DAILY #90 tab 08/30/17 03/26/18 Rx atorvastatin 20 mg tablet 20 mg PO DAILY #90 tab 10/13/17 03/26/18 Rx fluticasone 50 mcg/actuation nasal 2 spray INASL DAILY #16 g 10/13/17 03/26/18 Rx spray,suspension testosterone cypionate 200 mg/mL 200 mg IM every 2 weeks #6 vial 10/13/17 Rx intramuscular oil Flecainide Acetate 50 mg PO DAILY 03/26/18 03/26/18 History Hydrocodone/Acetaminophen 1 each PO Q8H #60 tablet 03/28/18 Rx [Hydrocodon-Acetaminophen 5-325] Levetiracetam [Keppra] 1,000 mg PO BID #60 tab 03/28/18 Rx Lorazepam 2 mg IV ONCE PRN #30 ml 03/28/18 Rx Exam - Vitals Vital Signs: Vital Signs Temperature 97.3 F Temperature Source Temporal Artery Scan Pulse Rate [Pulse Oximeter] 80 Pulse Rate [Standing] 86 Pulse Rate [Sitting] 85 Pulse Rate [Lying] 83 Pulse Rate 80 Respiratory Rate 18 Blood Pressure [Standing] 131/84 Blood Pressure [Sitting] 129/78 Blood Pressure [Lying] 144/85 Pulse Ox 93 Oxygen Flow Rate 1 Oxygen Delivery Method Nasal Cannula Height 5 ft 8 in Weight 200 lb 4.8 oz - General General Appearance: No Acute Distress, Cooperative - Eye Eye Exam: POSITIVE: No Scleral Icterus - ENT ENT Exam: POSITIVE: Mucous Membranes Moist - Respiratory Respiratory Exam: POSITIVE: Clear to Auscultation - Bilaterally, Breathing Non Labored - Cardiovascular Cardiovascular Exam: POSITIVE: RRR, No Murmur, No Clicks, No Gallops, No Rubs, No JVD - GI/Abdominal GI/Abdominal Exam: POSITIVE: Normal Bowel Sounds, Non Tender, Non Distended, Soft - Extremities Extremities Exam: POSITIVE: No Clubbing Present, No Edema Present, No Cyanosis Present - Neurological Neurological Exam: POSITIVE: Alert, Oriented x 3, No Facial Droop, Speech Intact / Clear, Moves All Extremities Equally - Psychiatric Psychiatric Exam: POSITIVE: Normal Affect, Normal Mood Data Peritnent Studies: 03/25/18 03/25/18 03/25/18 01:05 22:12 22:12 WBC 6.46 Hgb 15.4 Hct 45.4 MCV 96.0 H MCH 32.6 H Plt Count 185 PT 10.9 INR 1.03 VBG pH VBG pCO2 VBG HCO3 VBG Base Excess Sodium Potassium Chloride Carbon Dioxide Anion Gap BUN Creatinine BUN/Creatinine Ratio Glucose Calculated Osmolality Calcium Magnesium Total Bilirubin AST ALT Alkaline Phosphatase Total Creatine Kinase Troponin I Total Protein Albumin Globulin Albumin/Globulin Ratio TSH Serum Alcohol < 10 03/25/18 03/25/18 03/25/18 22:12 22:12 22:12 WBC Hgb Hct MCV MCH Plt Count PT INR VBG pH VBG pCO2 VBG HCO3 VBG Base Excess Sodium 140 Potassium 4.2 Chloride 106 Carbon Dioxide 26 Anion Gap 8 BUN 25 H Creatinine 1.3 BUN/Creatinine Ratio 19.23 Glucose 105 Calculated Osmolality 293.0 H Calcium 8.6 L Magnesium 2.0 Total Bilirubin 0.6 AST 38 ALT 49 Alkaline Phosphatase 86 Total Creatine Kinase Troponin I < 0.012 Total Protein 6.6 Albumin 4.1 Globulin 2.5 Albumin/Globulin Ratio 1.60 TSH 3.16 Serum Alcohol 03/25/18 03/25/18 03/26/18 22:12 22:15 05:00 WBC Hgb Hct MCV MCH Plt Count PT INR VBG pH 7.41 VBG pCO2 32 L VBG HCO3 20 L VBG Base Excess -4 L Sodium Potassium Chloride Carbon Dioxide Anion Gap BUN Creatinine BUN/Creatinine Ratio Glucose Calculated Osmolality Calcium Magnesium Total Bilirubin AST ALT Alkaline Phosphatase Total Creatine Kinase 293 H Troponin I < 0.012 Total Protein Albumin Globulin Albumin/Globulin Ratio TSH Serum Alcohol 03/26/18 14:00 WBC Hgb Hct MCV MCH Plt Count PT INR VBG pH VBG pCO2 VBG HCO3 VBG Base Excess Sodium Potassium Chloride Carbon Dioxide Anion Gap BUN Creatinine BUN/Creatinine Ratio Glucose Calculated Osmolality Calcium Magnesium Total Bilirubin AST ALT Alkaline Phosphatase Total Creatine Kinase Troponin I < 0.012 Total Protein Albumin Globulin Albumin/Globulin Ratio TSH Serum Alcohol Procedures: [address] [place] [address] PH: DD: [phone] FAX: [phone] ~DIAGNOSTIC IMAGING REPORT~ Patient: TRINIDAD PEACE : 1945 Sex: M Age: 72 Exam Name: US Carotids Bilateral Exam Date: 03/26/18 Report # : [id number] CPT Code: 98983 EMR/MR #: [id number] Ordering: WARD ENRIQUEZ Admiting: WARD ENRIQUEZ DO Primary: Rush Hirsch MD Attending: WARD ENRIQUEZ DO Signed Exam: US CAROTID HISTORY: Syncope COMPARISON: No prior carotid exam available TECHNIQUE: Duplex sonography of the carotid vasculature and vertebral vasculature including spectral and color Doppler techniques and rodriguez scale evaluation provided for review. FINDINGS: VESSEL: RIGHT PSV (cm/s) LEFT PSV (cm/s) CCA 107 cm/s 100 cm/s Carotid bulb 72 cm/s 109 cm/s ICA proximal 59 cm/s 108 cm/s ICA mid 55 cm/s 55 cm/s ICA distal 45 cm/s 57 cm/s ECA 112 cm/s 128 cm/s Vertebral 35 cm/s 61 cm/s IC to CC 0.6 cm/s 1.1 cm/s Antegrade flow in the vertebral arteries are noted bilaterally. There is mild calcified plaque in the bilateral carotid bulbs IMPRESSION: 1. No hemodynamically significant stenotic lesions. 2. Antegrade flow in the vertebral arteries bilaterally. 3. Mild calcified plaque in the bilateral carotid bulbs. Dictated By: Jose David Conklin MD Signed By: 03/26/18 1885 Jose David Conklin MD [address] [facility] [place] [address] PH: DD: [phone] FAX: [phone] ~DIAGNOSTIC IMAGING REPORT~ Patient: TRINIDAD PEACE : 1945 Sex: M Age: 72 Exam Name: CT CTA Chest Non-Coronary [facility] Exam Date: 03/26/18 Report # : [id number] CPT Code: 39771 EMR/MR #: [id number] Ordering: WARD ENRIQUEZ Admiting: WARD ENRIQUEZ DO Primary: Rush Hirsch MD Attending: WARD ENRIQUEZ DO Signed Exam: CTA CHEST With Contrast INDICATION: Hypoxia,? Pulmonary embolism TECHNIQUE: Multiple, contiguous 3 mm axial cuts of the chest are obtained following the administration of IV contrast. High resolution axial images as well as sagittal and coronal reformatted images are available. COMPARISON: Chest radiograph 07/08/2007 FINDINGS: No pulmonary embolism. Minimal dependent atelectasis in the lung bases bilaterally. No acute infiltrate. In the left lower lobe there is a 4 mm subpleural noncalcified nodule. Lungs are otherwise clear. Left upper chest dual-lead cardiac with leads with cardiomegaly. With leads projecting in the right atrium and right ventricle. Cardiomegaly. No pericardial effusion. Thoracic aorta normal caliber without dissection. No pleural effusion or pneumothorax. No adenopathy. Calcified left hilar lymph node measuring 1.6 cm compatible with old granulomatous disease. Anterior plate screw fusion hardware partially imaged involving C6 and C7 possibly extending more superiorly in the cervical spine. Endplate degenerative osteophyte formation at multiple levels of the thoracic spine of mild to moderate degree. No acute osseous abnormality. IMPRESSION: 1. No pulmonary embolism. 2. No focal infiltrates in the lungs. Minimal dependent bilateral basilar atelectasis. 3. 4 mm noncalcified subpleural nodule left lower lobe. This is nonspecific. Follow-up exam in 6 months suggested. 4. Cardiac pacer with leads with cardiomegaly. 5. Calcified left hilar lymph nodes compatible with old granulomatous disease. Dictated By: Jose David Conklin MD Signed By: 03/26/18 1208 Jose David Conklin MD [address] [facility] [place] [address] PH: DD: [phone] FAX: [phone] ~DIAGNOSTIC IMAGING REPORT~ Patient: TRINIDAD PEACE : 1945 Sex: M Age: 72 Exam Name: CT Head WO Contrast Exam Date: 03/25/18 Report # : [id number] CPT Code: 80320 EMR/MR #: [id number] Ordering: PRASHANT AGRAWAL Admiting: Primary: Rush Hirsch MD Attending: Signed EXAM: CT Head Without Intravenous Contrast CLINICAL HISTORY: ITS.REASON syncope/seizure Physician Notes: Tech Comments: TECHNIQUE: Axial computed tomography images of the head/brain without intravenous contrast. COMPARISON: No relevant prior studies available. FINDINGS: Brain: No evidence for acute intracranial hemorrhage or mass effect. No visualized acute cortical edema or evidence for territorial infarct by CT at this time. There are mild periventricular and subcortical white matter hypodensities bilaterally which are nonspecific, typically related to chronic small vessel ischemia. Mild hypodensity within the right basal ganglia could represent an old lacunar infarct or prominent perivascular space, with small similar foci also noted within the left thalamus and internal capsule. Global cortical involutional changes are present. Ventricles: Unremarkable. No ventriculomegaly. Bones/joints: Unremarkable. No acute fracture. Soft tissues: Unremarkable. Sinuses: Chronic paranasal sinus mucosal thickening is present. Mastoid air cells: Unremarkable as visualized. No mastoid effusion. IMPRESSION: 1. No acute intracranial CT findings. 2. Chronic intracranial changes as above. Critical Value Communications 03/25/18 23:29 Call Doctor Regarding Stroke, called Dr. Prashant Agrawal on 03/25 23:29 (-06:00) Dictated By: Levy Wu MD. Signed By: 03/25/18 2328 Levy Wu MD. Patient Problems - Patient Problem List (1) Seizure Current Visit: Yes Status: Acute Code(s): R56.9 - Unspecified convulsions Category: Medical (2) Syncope Current Visit: Yes Status: Acute Code(s): R55 - Syncope and collapse Category: Medical (3) Pacemaker Current Visit: Yes Status: Chronic Onset Date: 07/09/16 Code(s): Z95.0 - Presence of cardiac pacemaker Category: Medical (4) Hyperlipidemia Current Visit: Yes Status: Chronic Onset Date: 06/18/11 Code(s): E78.5 - Hyperlipidemia, unspecified Qualifiers: Hyperlipidemia type: pure hypercholesterolemia Qualified Code(s): E78.00 - Pure hypercholesterolemia, unspecified; E78.0 - Pure hypercholesterolemia Category: Medical (5) Essential hypertension Current Visit: Yes Status: Chronic Onset Date: 06/18/11 Code(s): I10 - Essential (primary) hypertension Category: Medical (6) Chronic neck and back pain Current Visit: Yes Status: Acute Code(s): M54.2 - Cervicalgia; M54.9 - Dorsalgia, unspecified Category: Medical
== END 2018-03-28 14:04 | disposition home or self-care (01) ==
LOC: MED/SURG 21:54 → ER 21:54
PROVIDERS: ADMIT Family Medicine; ATTEND Family Medicine